=== PATIENT | male | born 1940 | race Hispanic/Latino ===

== ENCOUNTER 2024-01-27 08:58 | Emergency (ER) | payer OTHER ==
--- NOTE | 2024-01-27 10:20 | ER ---
Nurse's Notes [facility] Name: Mega Becerra Age: 83 yrs Sex: Male : 1940 Arrival Date: 01/27/2024 Time: 08:58 Bed 19 Private MD: Diagnosis: Encounter for attention to dressings, sutures and drains Presentation: 01/26 09:13 Chief complaint: Patient states: Problem with catheter. Malawian speaking. Coronavirus ll1 screen: Client denies travel out of the [place] in the last 14 days. At this time, the client does not indicate any symptoms associated with coronavirus-19. Ebola Screen: Patient denies travel to an Ebola-affected area in the 21 days before illness onset. Initial Sepsis Screen: Does the patient meet any 2 criteria? No. Patient's initial sepsis screen is negative. Does the patient have a suspected source of infection? No. Patient's initial sepsis screen is negative. Risk Assessment: Do you want to hurt yourself or someone else? Patient reports no desire to harm self or others. Onset of symptoms was January 27, 2024. 09:13 Method Of Arrival: Wheelchair ll1 09:13 Acuity: [place] 3 ll1 Triage Assessment: 09:14 General: Appears in no apparent distress. Behavior is calm, cooperative, appropriate ll1 for age. Pain: Denies pain. : Reports problem with catheter. Historical: - Allergies: 09:13 No Known Allergies; ll1 - Immunization history:: Adult Immunizations up to date. - Infectious Disease History:: Denies. - Social history:: Smoking status: Patient denies any tobacco usage or history of. Vital Signs: 09:13 BP 125 / 54; Pulse 71; Resp 17; Temp 97.2; Pulse Ox 100% on R/A; Pain 0/10; ll1 09:13 Pain Scale: Adult ll1 ED Course: 08:59 Patient arrived in ED. mr 09:02 Daren Gant PA is PHCP. cp 09:02 Cole Perez MD is Attending Physician. cp 09:06 Arm band placed on Patient placed in an exam room, on a stretcher. ll1 09:14 Triage completed. ll1 09:24 Geena Iyer RN is Primary Nurse. ll1 Administered Medications: No medications were administered Outcome: 10:20 Discharge ordered by . mary 10:41 Patient left the ED. rs5 Signatures: Edilia Dominguez, Reg Reg mr Daren Gant PA PA cp Lewis, Lynsay, RN RN ll1 Tip Roberts RN RN rs5
--- NOTE | 2024-01-27 10:21 | EDPHYS ---
Physician Documentation [facility] Name: Mega Becerra Age: 83 yrs Sex: Male : 1940 Arrival Date: 01/27/2024 Time: 08:58 Bed 19 Private MD: ED Physician Cole Perez HPI: 01/26 09:32 This 83 yrs old Male presents to ER via Wheelchair with complaints of Problem cp With Wound Vacuum. 09:32 Patient is a 83-year-old male who presents to the emergency department with a wound VAC cp in place to his left lower leg. Through use of sales promotion coordinator, patient reportedly had wound VAC placed by a physician in [place] and is here on vacation and is having difficulty changing the dressing. No other complaints. Historical: - Allergies: 09:13 No Known Allergies; ll1 - Immunization history:: Adult Immunizations up to date. - Infectious Disease History:: Denies. - Social history:: Smoking status: Patient denies any tobacco usage or history of. ROS: 09:35 Constitutional: as per HPI cp Exam: 09:40 Constitutional: The patient appears in no acute distress, alert, awake, comfortable, cp non-toxic, well developed, well nourished, 09:40 Head/Face: Normocephalic, atraumatic. cp 09:40 Eyes: Periorbital structures: appear normal, Conjunctiva: normal, no exudate, no injection, Lids and lashes: appear normal, bilaterally, 09:40 ENT: External ear(s): are unremarkable, Nose: is normal, Mouth: Lips: moist, Oral mucosa: pink and intact, moist, 09:40 Chest/axilla: Inspection: normal, 09:40 Cardiovascular: Rate: normal, 09:40 Respiratory: the patient does not display signs of respiratory distress, Respirations: normal, no use of accessory muscles, no retractions, 09:40 Abdomen/GI: Inspection: abdomen appears normal, 09:40 Musculoskeletal/extremity: Extremities: noted in the medial side distal aspect left lower leg: wound vac in place, no swelling, no erythema noted, 09:40 Neuro: Orientation: no acute changes, per family, Mentation: no acute changes, per family, Vital Signs: 09:13 BP 125 / 54; Pulse 71; Resp 17; Temp 97.2; Pulse Ox 100% on R/A; Pain 0/10; ll1 09:13 Pain Scale: Adult ll1 MDM: 09:02 Patient medically screened. cp 10:20 Data reviewed: vital signs, nurses notes, and as a result, I will discharge patient. cp 10:20 ED course: VSS. Wound vac dressing change performed by nursing staff. cp Administered Medications: No medications were administered Disposition: 11:14 Co-signature as Attending Physician, Cole Perez MD I reviewed the patient's care rt provided by the Advanced Practice Provider and agree with the diagnosis and treatment plan. Disposition Summary: 01/27/24 10:20 Discharge Ordered Notes: Location: Home cp Problem: an ongoing problem cp Symptoms: have improved cp Condition: Stable cp Diagnosis - Encounter for attention to dressings, sutures and drains cp Followup: cp - With: Private Physician - When: 2 - 3 days - Reason: Recheck today's complaints Discharge Instructions: - Discharge Summary Sheet cp - How to Change Your Wound Dressing cp Forms: - Medication Reconciliation Form cp - Antibiotic Education cp - Prescription Opioid Use cp - Patient Portal Instructions cp - Leadership Thank You Letter cp Signatures: Daren Gant PA PA cp Geena Iyer, RN RN ll1 Cole Perez MD MD rt Corrections: (The following items were deleted from the chart) 10:19 10:17 Constitutional: as per HPI cp cp
[2024-01-27 11:02] VITALS: BP 125/54; TEMP 97.2; O2SAT 100
== END 2024-01-27 10:41 | disposition home or self-care (01) ==
LOC: ER 08:58
DX: Z48.00 Encounter for change or removal of nonsurgical wound dressing (principal)
CPT/HCPCS: 99281